=== PATIENT | female | born 1965 | race Caucasian/White ===

== ENCOUNTER 2020-12-02 08:10 | Emergency (ER) | payer OTHER ==
[~2020-12-02] VITALS: Ht 167.6 cm; Wt 124.7 kg
[2020-12-02] MEDS ORDERED: WELLBUTRIN XL300 MG PO (08:39)
[2020-12-02] MEDS ORDERED: OZEMPIC0.25 MG/0. SC (08:39)
[2020-12-02] MEDS ORDERED: LAMICTAL100 MG PO (08:39)
[2020-12-02] MEDS ORDERED: LOSARTAN POTAS100 MG PO (08:39)
[2020-12-02] MEDS ORDERED: CYMBALTA30 MG PO (08:39)
[2020-12-02] MEDS ORDERED: AMLODIPINE BESY10 MG PO (08:39)
[2020-12-02] MEDS ORDERED: ATORVASTATIN CA20 MG PO (08:39)
[2020-12-02] MEDS ORDERED: ONDANSETRON HCL INJ 2MG/ML 2ML 2 MG/ML VIAL IV STA (09:01)
[2020-12-02] MEDS ORDERED: MORPHINE SULFATE INJ 4 MG/ML INJ 1ML IV ONE (09:15)
[2020-12-02] MEDS ORDERED: DEXAMETHASONE SOD PHOS 10 MG/1 ML VIAL IV ONE (09:15)
[2020-12-02] MEDS ORDERED: SODIUM CHLORIDE 0.9% 500ML 500 ML IV ONE (09:15)
[2020-12-02] MEDS ORDERED: DIPHENHYDRAMINE HCL INJ 50 MG/ML VIAL ONE (09:16)
[2020-12-02] MEDS ORDERED: ONDANSETRON HCL INJ 2MG/ML 2ML 2 MG/ML VIAL ONE (09:16)
[2020-12-02] MEDS ORDERED: DEXAMETHASONE SOD PHOS INJ 4 MG/ML VIAL ONE (09:16)
[2020-12-02] MEDS ORDERED: IOPAMIDOL 370 MG/ML 200 ML INFUS..BTL INJ ONE (09:40)
[2020-12-02] MEDS ORDERED: SODIUM CHLORIDE 0.9% 50ML 50 ML ONE (09:41)
[2020-12-02] MEDS ORDERED: MIRTAZAPINE7.5 MG PO (10:15)
[2020-12-02] MEDS ORDERED: SUMATRIPTAN SUC25 MG PO (10:15)
[2020-12-02] MEDS ORDERED: LYRICA150 MG PO (10:15)
[2020-12-02] MEDS ORDERED: MAGOX 400400 MG PO (10:15)
[2020-12-02] MEDS ORDERED: ONDANSETRON ODT4 MG PO (10:15)
[2020-12-02] MEDS ORDERED: SODIUM CHLORIDE 0.9% 500ML 500 ML ONE (10:15)
[2020-12-02] MEDS ORDERED: ULTRAM50 MG PO (10:15)
[2020-12-02] MEDS ORDERED: OMEPRAZOLE40 MG PO (10:15)
[2020-12-02] MEDS ORDERED: DETROL LA4 MG PO (10:15)
[2020-12-02] MEDS ORDERED: HYDROCHLOROTHIA25 MG PO (10:15)
[2020-12-02] MEDS ORDERED: BACLOFEN10 MG PO (10:15)
[2020-12-02] MEDS ORDERED: HYDROXYZINE HCL25 MG PO (10:15)
[2020-12-02] MEDS ORDERED: DIPHENHYDRAMINE HCL INJ 50 MG/ML VIAL IV ONE (11:00)
[2020-12-02] MEDS ORDERED: PREDNISONE50 MG PO (11:09)
[2020-12-02] MEDS ORDERED: HYDROCODON-ACE1 EA12 PO (11:12)
[2020-12-02] MEDS ORDERED: DIAZEPAM10 MG PO (11:15)
== END 2020-12-02 11:41 | disposition home or self-care (01) ==
LOC: FSED 08:40
DX: M54.16 Radiculopathy, lumbar region (principal); M48.061 Spinal stenosis, lumbar region without neurogenic claudication; M47.897 Other spondylosis, lumbosacral region; M62.830 Muscle spasm of back; I10 Essential (primary) hypertension; E78.5 Hyperlipidemia, unspecified; G89.29 Other chronic pain; F31.9 Bipolar disorder, unspecified; F17.290 Nicotine dependence, other tobacco product, uncomplicated
CPT/HCPCS: 72132; 80053; 81003; 85025; 96374; 96375; 99284; J1100 ×2; J1200; J2270; J2405; J7040; Q9967